=== PATIENT | male | born 1995 | race Caucasian/White ===

== ENCOUNTER 2017-06-12 18:43 | Emergency (ER) | payer BC ==
[~2017-06-12] VITALS: Ht 188 cm; Wt 90.1 kg
[2017-06-12 19:11] VITALS: TEMP 37.1; Ht 188 cm; Wt 90.1 kg
[2017-06-12 20:28] VITALS: O2SAT 100
--- NOTE | 2017-06-12 20:40 | EMERGENCY ROOM VISIT NOTE ---
History Report prepared by Jeanine: Nhung Naylor Under the Supervision of: Dr. Thompson Ortiz M.D. First contact with patient: 20:25 Chief Complaint: SHORTNESS OF BREATH Stated Complaint: SOB Nursing Triage Summary: Patient ambulatory to triage with an upright and steady gait, states "The last four days, I have been having a shortness of breath in my throat. Today, it seemed worse. I have asthma but it is really well controlled. I have only every had one flare up. I'm not sure what's going on." Patient denies any trouble with swallowing. No chest pain. Mild runny nose. No cough. History of Present Illness The patient is a 22 year old male who presents to the Emergency Room with complaints of constant shortness of breath beginning 4 days ago. The patient states that he has a history of asthma that is under control and has never had a flare up. He reports that he is active and used an inhaler today without relief of his symptoms. He complains of a dry throat. The patient denies any cough, fever, stuffy nose, sore throat, clotting history and leg swelling. He notes that he traveled 3 hours for break about 3 weeks ago. Source of History: patient Onset: 4 days ago Position: other (global ) Quality: other (SOB) Timing: constant Associated Symptoms: No fevers, No sorethroat, No cough Note: Pt complains of a dry throat. Denies leg swelling. Review of Systems See HPI for pertinent positives & negatives. A total of 10 systems reviewed and were otherwise negative. Past Medical & Surgical Medical Problems: (1) Asthma Family History No pertinent family history stated. Social History Smoking Status: Never Smoker Marital Status: single Housing Status: lives with roommate Occupation Status: [employer] student Current/Historical Medications Scheduled Prednisone (Prednisone), 2 TAB PO DAILY Allergies Coded Allergies: No Known Allergies (Unverified , 06/12/17) Physical Exam Vital Signs Date Time Temp Pulse Resp B/P (MAP) Pulse Ox O2 Delivery O2 Flow Rate FiO2 06/12/17 22:08 83 16 135/82 97 Room Air 06/12/17 21:29 87 16 119/65 99 Room Air 06/12/17 20:48 90 06/12/17 20:28 100 Room Air 06/12/17 20:27 105 18 149/97 100 Room Air 06/12/17 19:13 97 Room Air 06/12/17 19:11 37.1 102 16 135/81 97 Room Air Physical Exam GENERAL: Patient is slightly anxious. HEENT: No acute trauma, normocephalic atraumatic, mucous membranes moist, no nasal congestion, no scleral icterus. No throat erythema or exudate. NECK: No stridor, no adenopathy, no meningismus, trachea is midline. LUNGS: Clear to auscultation bilaterally, no wheeze, no rhonchi, breath sounds equal. HEART: Tachycardic with a regular rhythm, no murmurs. ABDOMEN: Soft, nontender, bowel sounds positive, no hernias, no peritonitis. EXTREMITIES: No cyanosis or edema, full range of motion of all the joints without pain or difficulty, no signs for acute trauma. NEUROLOGIC: Oriented x 3, no acute motor or sensory deficits, no focal weakness. SKIN: No rash, no jaundice, no diaphoresis. Medical Decision & Procedures ER Provider Diagnostic Interpretation: X-ray results as stated below per interpretation by me and the radiologist: CHEST ONE VIEW PORTABLE FINDINGS: The cardiac and mediastinal contours are normal. There is no evidence of focal pulmonary consolidation. There is no evidence of failure. No pleural effusions are visualized.[ There is minor splaying of the left second and third ribs, possibly developmental. IMPRESSION: No active disease in the chest. Electronically signed by: Frederic Tatum M.D. 06/12/2017 8:57 PM Dictated Date/Time: 06/12/2017 8:56 PM Laboratory Results 06/12/17 20:40 Red Blood Count 4.99, Mean Corpuscular Volume 87.4, Mean Corpuscular Hemoglobin 29.7, Mean Corpuscular Hemoglobin Concent 33.9, Mean Platelet Volume 8.9, Neutrophils (%) (Auto) 80.4, Lymphocytes (%) (Auto) 11.7, Monocytes (%) (Auto) 7.4, Eosinophils (%) (Auto) 0.1, Basophils (%) (Auto) 0.1, Neutrophils # (Auto) 11.52, Lymphocytes # (Auto) 1.68, Monocytes # (Auto) 1.06, Eosinophils # (Auto) 0.01, Basophils # (Auto) 0.02 06/12/17 20:40 Test 06/12/17 20:40 06/12/17 20:45 White Blood Count 14.33 K/uL (4.8-10.8) Red Blood Count 4.99 M/uL (4.7-6.1) Hemoglobin 14.8 g/dL (14.0-18.0) Hematocrit 43.6 % (42-52) Mean Corpuscular Volume 87.4 fL (80-100) Mean Corpuscular Hemoglobin 29.7 pg (25-34) Mean Corpuscular Hemoglobin Concent 33.9 g/dl (32-36) Platelet Count 270 K/uL (130-400) Mean Platelet Volume 8.9 fL (7.4-10.4) Neutrophils (%) (Auto) 80.4 % Lymphocytes (%) (Auto) 11.7 % Monocytes (%) (Auto) 7.4 % Eosinophils (%) (Auto) 0.1 % Basophils (%) (Auto) 0.1 % Neutrophils # (Auto) 11.52 K/uL (1.4-6.5) Lymphocytes # (Auto) 1.68 K/uL (1.2-3.4) Monocytes # (Auto) 1.06 K/uL (0.11-0.59) Eosinophils # (Auto) 0.01 K/uL (0-0.5) Basophils # (Auto) 0.02 K/uL (0-0.2) RDW Standard Deviation 41.4 fL (36.4-46.3) RDW Coefficient of Variation 13.0 % (11.5-14.5) Immature Granulocyte % (Auto) 0.3 % Immature Granulocyte # (Auto) 0.04 K/uL (0.00-0.02) Anion Gap 8.0 mmol/L (3-11) Est Creatinine Clear Calc Drug Dose 135.9 ml/min Estimated GFR () 124.1 Estimated GFR (Non- 107.1 BUN/Creatinine Ratio 17.0 (10-20) Calcium Level 9.3 mg/dl (8.5-10.1) Bedside D-Dimer 306 ng/mlFEU (0-450) Bedside Troponin I < 0.030 ng/ml (0-0.045) Laboratory results reviewed by me. Medications Administered Medications (Trade) Dose Ordered Sig/Alejandro Route Start Time Stop Time Status Last Admin Dose Admin Prednisone (PredniSONE TAB) 40 mg NOW STAT PO 06/12/17 22:05 06/12/17 22:06 DC 06/12/17 22:16 40 MG ECG Indication: SOB/dyspnea Rate (beats per minute): 95 Rhythm: normal sinus Findings: no acute ischemic change, no ectopy, other (possible LVH) ED Course 2024: The patient was evaluated in room B2. A complete history and physical exam was performed. 2153: I reevaluated and updated the patient on his results. 2204: Prednisone 40mg PO. 2214: Reevaluated the patient. Discussed results and discharge instructions: He verbalized understanding and agreement. The patient is ready for discharge. Medical Decision The patient is a 22 year old male who presents to the ED with complaints of shortness of breath. Differential diagnoses considered include anxiety, exacerbation of asthma, pneumonia, bronchitis, pharyngitis, PE, dysrhythmia. There is a mild leukocytosis at 14,000, this could be consistent with infection or the stress of his situation. No concerning anemia. No significant electrolyte abnormality, kidney failure. EKG shows a sinus rhythm, no acute ischemia. Cardiac enzyme testing times one is not consistent with acute cardiac injury. Chest x-ray does not show pneumonia, mediastinal widening or pneumothorax. D-dimer testing is negative. With a negative d-dimer and my low suspicion for PE, I will stop the workup for this diagnosis. The patient presents with some shortness of breath. He does have a history of asthma. He certainly may be having a flare of asthma. I think a trial of oral steroids would be warranted. The patient was given a 40 mg dose of oral prednisone while in the ER. The patient was encouraged return if worsening. He will continue his inhalers. He was discharged home. Medication Reconcilliation Current Medication List: was personally reviewed by me Blood Pressure Screening Patient's blood pressure: Elevated blood pressure Blood pressure disposition: Elevated BP felt to be situational Impression Primary Impression: SOB (shortness of breath) Additional Impression: Exacerbation of asthma Scribe Attestation The scribe's documentation has been prepared under my direction and personally reviewed by me in its entirety. I confirm that the note above accurately reflects all work, treatment, procedures, and medical decision making performed by me. Departure Information Dispostion Home / Self-Care Prescriptions Prednisone (Prednisone) 20 Mg Tab 2 TAB PO DAILY for 5 Days, #10 TAB Prov: Thompson Ortiz M.D. 06/12/17 Referrals No Doctor, Assigned (PCP) Forms HOME CARE DOCUMENTATION FORM, IMPORTANT VISIT INFORMATION Patient Instructions My [facility] Additional Instructions continue the inhalers as before use prednisone daily for the next 5 days return for fever, worsening breathing chest film, ECG were ok today Problem Qualifiers
--- NOTE | 2017-06-12 20:58 | DIAGNOSTIC IMAGING REPORT ---
CHEST ONE VIEW PORTABLE CLINICAL HISTORY: Atypical chest pain and shortness of breath COMPARISON STUDY: No previous studies for comparison. FINDINGS: The cardiac and mediastinal contours are normal. There is no evidence of focal pulmonary consolidation. There is no evidence of failure. No pleural effusions are visualized.[ There is minor splaying of the left second and third ribs, possibly developmental. IMPRESSION: No active disease in the chest. Electronically signed by: Frederic Tatum M.D. 06/12/2017 8:57 PM Dictated Date/Time: 06/12/2017 8:56 PM
[2017-06-12 20:59] LABS: BASO % 0.1 %; BASO ABS # 0.02 K/uL (0-0.2); COMPLETE YES; EOS % 0.1 %; HEMATOCRIT 43.6 % (42-52); IG% 0.3 %; LYMPH % 11.7 %; LYMPH ABS # 1.68 K/uL (1.2-3.4); MEAN CELL VOLUME 87.4 fL (80-100); MEAN CORPUSCULAR HEMOGLOBIN 29.7 pg (25-34); MEAN CORPUSCULAR HGB CONC 33.9 g/dl (32-36); MEAN PLATELET VOLUME 8.9 fL (7.4-10.4); MONO % 7.4 %; NEUT % 80.4 %; PLATELET COUNT 270 K/uL (130-400); RED BLOOD COUNT 4.99 M/uL (4.7-6.1); WHITE BLOOD COUNT 14.33 K/uL (4.8-10.8)
[2017-06-12 21:05] LABS: POINT OF CARE TROPONIN I < 0.030 ng/ml (0-0.045)
[2017-06-12 21:16] LABS: CALCIUM 9.3 mg/dl (8.5-10.1); POTASSIUM 3.6 mmol/L (3.5-5.1)
[2017-06-12 22:08] VITALS: BP 135/82; PULSE 83; O2SAT 97
[2017-06-12] MEDS ORDERED: PRED20TA PO (22:09)
== END 2017-06-12 22:17 | disposition home or self-care (01) ==
LOC: C.EDB 18:45
DX: J45.901 Unspecified asthma with (acute) exacerbation (principal)